=== PATIENT | female | born 1990 | race Caucasian/White ===

== ENCOUNTER 2020-02-06 17:15 | Emergency (ER) | payer OTHER, SELFPAY ==
[2020-02-06 17:28] VITALS: BP 128/82; PULSE 78; RESP 16; TEMP 36.8; O2SAT 97; BMI 24.3
--- NOTE | 2020-02-06 17:35 | DI.RAD.S_ITS ---
PROCEDURE: XR FOREARM RT 2V INDICATIONS: fall TECHNIQUE: 2 views of the forearm were acquired. COMPARISON: None. FINDINGS: Bones: No fractures or dislocations. No suspicious bony lesions. Soft tissues: No suspicious soft tissue calcifications or masses. IMPRESSION: No visualized acute fracture or dislocation. However, if clinical concern and/or pain persist, short interval imaging followup in 7-10 days is recommended, as occult injury cannot be definitively excluded. Dictated by: Jocy Do M.D. on 02/06/2020 at 18:03 Approved by: Jocy Do M.D. on 02/06/2020 at 18:04
--- NOTE | 2020-02-06 19:35 | ED_ITS ---
HPI - Extremity Injury (Upper) <KAROL Galvin - Last Filed: 02/06/20 21:16> General Chief Complaint: Extremity Injury, Upper Stated Complaint: rt arm injury Time Seen by Provider: 02/06/20 18:24 Source: patient Mode of arrival: Ambulatory Limitations: no limitations History of Present Illness HPI narrative: This is a 29-year-old female with non contributory medical history presents to ED with right dominant arm forearm pain and swelling after she fell during work at 11:30 a.m. today. Patient works as a [employer] and she accidentally fell and landed on the ground but is not exactly able to recall how she fell or whether she fell on some type of object. Patient reports denies wrist, fingers, elbow, shoulder pain and is able to moved these areas without difficulty and denies injuring her head. Patient reports intact sensation distally. Reports pain increases with supination and pronation motion and improves with resting. Patient reports last tetanus immunization was last than 5 years ago. Patient reports she had taken aspirin this morning after the injury. Related Data Home Medications Medication Instructions Recorded Confirmed mesalamine PO 02/06/20 Allergies Allergy/AdvReac Type Severity Reaction Status Date / Time sertraline AdvReac Hypotension Verified 02/06/20 18:51 Review of Systems <KAROL Galvin - Last Filed: 02/06/20 21:16> Review of Systems Narrative: General: Denies fever, chills, fatigue, malaise, sweats. HEENT: Denies sinus pain, ear pain, sore throat, difficulty swallowing, dizziness. Respiratory: Denies dyspnea, cough, wheezing, hemoptysis, sputum. Cardiovascular: Denies chest pain, palpitations, orthopnea, edema. Musculoskeletal: See HPI Skin: See HPI Neurologic: Denies weakness, headache, numbness, change in speech, confusion, seizures, incoordination. Psychiatric: No concerning psychosocial issues. Patient History <KAROL Galvin - Last Filed: 02/06/20 21:16> Medical History Irritable bowel disease (Acute) Social History Smoking Status: Never smoker Smoking Status: Never smoker alcohol intake frequency: other (denies) Substance Use Type: does not use Exam <Adria SorinKAROL - Last Filed: 02/06/20 21:16> Narrative Exam Narrative: General appearance: well developed, well nourished, in no acute distress. Head: normocephalic, atraumatic, no scalp lesions, non-tender. ENT: Hearing grossly intact. Airway patent. Neck/Thyroid: neck supple, full range of motion, no visible masses or meningeal signs. No JVD, non-tender without lymphadenopathy. Skin: About 1 cm flap like laceration on ulna aspect of right forearm. Warm and dry and appropriate color for ethnicity. Heart: no clubbing, no cyanosis, no edema. Lungs: Breathing even and unlabored. No stridor. No accessory muscles used. Able to speak in full sentences. Chest: normal shape and expansion. Abdomen: non-obese, non-distended. Neurologic: alert and oriented. Cognitive exam, ADJUDICATION SPECIALIST and PNS grossly intact on informal exam. Psych: good eye contact, normal affect. Initial Vital Signs Initial Vital Signs: Vital Signs Temperature 98.2 F 02/06/20 17:28 Pulse Rate 78 02/06/20 17:28 Respiratory Rate 16 02/06/20 17:28 Blood Pressure 128/82 02/06/20 17:28 Pulse Oximetry 97 02/06/20 17:28 Extrem Right upper extremity: shoulder/upper arm Details: normal ROM; no tenderness and no swelling, elbow/forearm Details: abnormal to inspection Details: other (swelling to right lateral forearm), tenderness Location: of the mid-shaft forearm (On ulna aspect), swelling, abnormal ROM Details: pain with active ROM during Details: with pronation and with supination and pain with passive ROM during, laceration (about 1 cm flap like dorsal aspect of forearm, appears almost like puncture), ecchymosis (mid shaft on ulnar aspect) and distal pulses intact; no unusual warmth and no foreign bodies, wrist Details: normal ROM; no tenderness and no swelling and hand Details: normal to inspection, normal capillary refill, neuromotor exam normal, neurosensory exam normal and normal ROM of fingers <Hakeem Ernst DO - Last Filed: 02/06/20 21:50> Initial Vital Signs Initial Vital Signs: Vital Signs Temperature 98.2 F 02/06/20 17:28 Pulse Rate 78 02/06/20 17:28 Respiratory Rate 16 02/06/20 17:28 Blood Pressure 128/82 02/06/20 17:28 Pulse Oximetry 97 02/06/20 17:28 Scores <HENRI GalvinP - Last Filed: 02/06/20 21:16> GCS [place] coma scale eye opening: Spontaneous [place] coma scale verbal response: Orientated [place] coma scale motor response: Obey commands [place] coma scale total score: 15 Course <HENRI GalvinP - Last Filed: 02/06/20 21:16> Orders Ordered: ED Orders 02/06/20 17:35 XR forearm RT 2V Stat Discontinued Medications Acetaminophen (Tylenol) 650 mg PO NOW ONE Stop: 02/06/20 18:43 Last Admin: 02/06/20 19:35 Dose: Not Given Documented by: RADHA Ibuprofen (Advil) 400 mg PO NOW ONE Stop: 02/06/20 18:43 Last Admin: 02/06/20 19:35 Dose: Not Given Documented by: RADHA Vital Signs Vital signs: Vital Signs - 8 hr 02/06/20 17:28 Temperature 98.2 F Pulse Rate 78 Respiratory Rate 16 Blood Pressure 128/82 Pulse Oximetry 97 <Hakeem Ernst DO - Last Filed: 02/06/20 21:50> Orders Ordered: ED Orders 02/06/20 17:35 XR forearm RT 2V Stat Discontinued Medications Acetaminophen (Tylenol) 650 mg PO NOW ONE Stop: 02/06/20 18:43 Last Admin: 02/06/20 19:35 Dose: Not Given Documented by: RADHA Ibuprofen (Advil) 400 mg PO NOW ONE Stop: 02/06/20 18:43 Last Admin: 02/06/20 19:35 Dose: Not Given Documented by: RADHA Vital Signs Vital signs: Vital Signs - 8 hr 02/06/20 17:28 Temperature 98.2 F Pulse Rate 78 Respiratory Rate 16 Blood Pressure 128/82 Pulse Oximetry 97 MDM - Extremity Injury (Upper) <KAROL Galvin - Last Filed: 02/06/20 21:16> Differential Diagnosis Differential diagnosis: Likely other (Fracture of forearm, contusion of forearm, laceration/puncture wound to dorsal forearm) Medical Records Attestation: I reviewed the patient's medical records. Imaging Data XR- Forearm, RT: Radiologist's Impression: [address] [id number] XRay Report Signed Patient: Violetta Lemus [facility]#: [id number] : 1990Acct:[id number] Age/Sex: 29 / FDate of Service: 02/06/20 Loc: ED Accession Number: [id number] Procedure: XR forearm RT 2V Ordering Provider: Jeb Del Rosario MD PROCEDURE: XR FOREARM RT 2V INDICATIONS: fall TECHNIQUE: 2 views of the forearm were acquired. COMPARISON: None. FINDINGS: Bones: No fractures or dislocations. No suspicious bony lesions. Soft tissues: No suspicious soft tissue calcifications or masses. IMPRESSION: No visualized acute fracture or dislocation. However, if clinical concern and/or pain persist, short interval imaging followup in 7-10 days is recommended, as occult injury cannot be definitively excluded. Dictated by: Jocy Do M.D. on 02/06/2020 at 18:03 Approved by: Jocy Do M.D. on 02/06/2020 at 18:04 [facility] Narrative Medical decision making narrative: The was triaged and x-ray was obtained by triage nurse. Patient was assessed by myself and we talked about medication administration of Tylenol and Motrin to help with discomfort and wound repair with Dermabond and Steri-Strips. Patient Signed AMA before wound repair and decided to leave ED stating patient can take care of wound at home on her own and to take Tylenol and or Motrin at home and not to wait any longer. Discharge Plan Departure Patient Disposition: Left Against Medical Advice Clinical Impression: Patient left before treatment completed Discharge Date/Time: 02/06/20 19:30 Prescriptions: No Action mesalamine 1.2 gram tablet,delayed release (DR/EC) PO RF: 0 Stand Alone Forms: Against Medical Advice <Hakeem Ernst, DO - Last Filed: 02/06/20 21:50> Cosign ED Attending Cosignature Attestation: Dr Ernst Co-Sign Statement: I was available for consultation during this patient's emergency department visit. This chart is signed by myself for administrative purposes only. I did not have direct contact with this patient during this visit. They were seen independently by the APC.
== END 2020-02-06 19:30 | disposition left against medical advice (07) ==
PROVIDERS: Emergency Provider Nurse Practitioner Family
DX: S49.91XA Unspecified injury of right shoulder and upper arm, initial encounter (principal); W18.30XA Fall on same level, unspecified, initial encounter; Y99.0 Civilian activity done for income or pay
CPT/HCPCS: 73090; 99283

== ENCOUNTER → 2021-03-17 07:41 | Outpatient (CLI) | payer OTHER, SELFPAY ==
[2021-03-17 09:19] LABS: COVID19 -Nasal RAPID POSITIVE (Negative)
== END ==
PROVIDERS: Visit Provider Nurse Practitioner Family
DX: U07.1 COVID-19 (principal); Z20.822 Contact with and (suspected) exposure to COVID-19; R05.9 Cough, unspecified; R06.02 Shortness of breath; R52 Pain, unspecified
CPT/HCPCS: 87635